=== PATIENT | female | born 1955 | race African-American/Black ===

== ENCOUNTER 2017-06-22 18:29 | Emergency (ER) | payer OTHER ==
[~2017-06-22] VITALS: Ht 157.5 cm; Wt 68.0 kg
[2017-06-22] MEDS ORDERED: PANTOPRAZOLE 40 MG/10 ML VIAL IV ONE (19:45)
[2017-06-22] MEDS ORDERED: SODIUM CHLORIDE 0.9% 1,000 ML IV ONE (19:45)
[2017-06-22 19:53] LABS: Albumin 2.7 g/dL (3.4-5.0); Anion Gap 10 (5-15); Aspartate Aminotransferase 8 U/L (15-37); Blood Urea Nitrogen 32 mg/dL (7-18); Calcium 8.8 mg/dL (8.5-10.1); Carbon Dioxide 22 mmol/L (21-32); Chloride 101 mmol/L (98-107); GFR African American 37 mL/min; GFR Non-African American 31 mL/min; Glucose 351 mg/dL (74-106); Potassium 5.1 mmol/L (3.5-5.1); Sodium 133 mmol/L (136-145)
[2017-06-22 19:56] LABS: Lactic Acid w/Reflex 2.3 mmol/L (0.4-2.0)
[2017-06-22 20:05] LABS: INR 0.95 (0.9-1.15); Partial Thromboplastin Time 24.6 sec (22.64-33.71); Prothrombin Time 10.4 sec (9.37-12.3)
[2017-06-22 20:11] LABS: Alkaline Phosphatase 158 U/L (45-117); Bilirubin, Total 0.2 mg/dL (0.2-1.0); Total Protein 7.6 g/dL (6.4-8.2)
[2017-06-22 20:12] LABS: Hemoglobin 13.4 g/dL (12.2-16.2); Mean Corpuscular Hemoglobin 27.9 pg (28.0-32.0)
[2017-06-22 20:15] LABS: Mean Corpuscular Hgb Conc. 32.7 g/dL (32.0-36.0); Mean Corpuscular Volume 85.2 fL (80.0-100.0); Mean Platelet Volume 10.9 fL (6.9-10.8); Platelet Count (auto) 160 10^3/uL (140-450); White Blood Cell 13.7 10^3/uL (4.4-10.8)
[2017-06-22 20:17] LABS: REFLEX LACTIC ACID YES OR NO YES
[2017-06-22 20:33] LABS: Promyelocytes % 0; Reactive Lymphocytes 0
[2017-06-22 21:19] LABS: Anisocytosis Slight; Metamyelocytes % 1; Myelocytes % 1; Platelet Estimate Adequate
[2017-06-22 21:59] LABS: Allen Test Yes; Base Excess -3.5 mmol/L (-2.0-2.0); Blood 02Sat 94.8 % (96-100); Blood COHb 0.3 % (0.5-1.5); Blood MetHb 0.4 % (0.0-1.5); HHb 5.2 % (0.0-5.0); MODE NASAL CANNULA; O2Hb 94.1 % (94.0-97.0); PCO2 36.3 mmHg (35.0-45.0); PCO2(T) 36.3 mmHg (35.0-45.0); PO2 82.8 mmHg (80.0-100.0); PO2(T) 82.8 mmHg (80.0-100.0); Sample Type Arterial; pH 7.381 (7.350-7.450)
[2017-06-22 22:00] LABS: B-Type Natriuretic Peptide 14.26 pg/mL (0-100)
[2017-06-22 22:43] LABS: Temperature: 23.1 C (20.0-25.0)
[2017-06-22 23:43] LABS: Urine RBC None Seen /hpf (0 - 4)
[2017-06-22 23:53] LABS: Urine Bilirubin Negative (Negative); Urine Blood Negative /uL (Negative); Urine Color Yellow (Yellow); Urine Glucose 4+ mg/dL (Normal); Urine Hyaline Cast MANY /lpf (0 - 2); Urine Ketone Negative (Negative); Urine Mucus FEW (None Seen); Urine Nitrite Negative (Negative); Urine Squamous Epithelial Cell FEW /hpf (<5); Urine Urobilinogen Normal (Negative)
[2017-06-23 00:20] VITALS: BP 102/58
== END 2017-06-23 02:48 | disposition home or self-care (01) ==
LOC: ER 18:35
DX: E87.6 Hypokalemia (principal); E86.0 Dehydration; E11.9 Type 2 diabetes mellitus without complications; K21.9 Gastro-esophageal reflux disease without esophagitis; I10 Essential (primary) hypertension; E07.89 Other specified disorders of thyroid; Z85.3 Personal history of malignant neoplasm of breast; Z88.0 Allergy status to penicillin; Z90.49 Acquired absence of other specified parts of digestive tract
CPT/HCPCS: 36415; 36600; 71010; 74176; 80053; 81001; 82805; 83605; 83880; 84484; 85007; 85027; 85610; 85730; 87040; 96361; 96374; 99285; C9113; J7030